=== PATIENT | male | born 1985 | race Caucasian/White ===

== ENCOUNTER 2022-08-10 20:47 | Emergency (ER) | payer OTHER ==
[2022-08-10 20:51] VITALS: BP 133/87; PULSE 90; RESP 17; TEMP 98; BMI 33.7
== END 2022-08-10 21:30 | disposition left against medical advice (07) ==
LOC: JER 20:47
DX: R10.31 Right lower quadrant pain (principal); R19.7 Diarrhea, unspecified; R50.9 Fever, unspecified
CPT/HCPCS: 99281-25